=== PATIENT | female | born 1970 | race African-American/Black ===

== ENCOUNTER 2018-11-09 15:51 | Emergency (ER) | payer BC ==
[2018-11-09] MEDS ORDERED: Ibuprofen 800 MG TAB ONE (16:25)
--- NOTE | 2018-11-09 16:50 | RAD ---
LEFT WRIST THREE VIEW 11/09/18 HISTORY: Injury. COMPARISON: None. FINDINGS: There is mild widening of the scapholunate interval, abnormal. No acute displaced fracture or malalig nment. Scaphoid is without fracture. IMPRESSION: Age indeterminate widening of the scapholunate interval suggesting scapholunate ligament injury. POS: [facility]
== END 2018-11-09 17:09 | disposition home or self-care (01) ==
LOC: ERS 15:51
DX: M25.432 Effusion, left wrist (principal); W19.XXXA Unspecified fall, initial encounter

== ENCOUNTER 2018-12-02 10:06 | Outpatient (CLI) | payer BC ==
--- NOTE | 2018-12-02 15:05 | MRI ---
MRI LEFT WRIST POST ARTHROGRAM CONTRAST: HISTORY: Pain in left wrist following an injury. TECHNIQUE: Contrast media was injected into the radial carpal joint. FINDINGS: There is a central perforation of the TFC with contrast extending into an abnormally dilated distal r adial ulnar joint. In addition, there is evidence for scapholunate disassociation, with complete dis ruption of the scapholunate ligament and extension of contrast into the middle carpal row. No eviden ce for signal abnormal marrow signal. No evidence for a scaphoid fracture. The visualized tendons a ppear unremarkable. No significant abnormal tenosynovitis. IMPRESSION: 1. Central perforation of the triangular fibrocartilage complex. 2. 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 POS: [facility]
--- NOTE | 2018-12-02 15:13 | RAD ---
LEFT WRIST ARTHROGRAM: Indications: Left wrist injury with pain. Post arthrogram MRI of the wrist is requested. Technique: 25 gauge needle was placed in the radial carpal joint under fluoroscopic guidance under local anesthe diann. Contrast solution which was pre-mixed according to protocol containing iodinated contrast and ga dolinium was injected under fluoroscopic observation. FINDINGS: Post injection images show contrast into the radial carpal joint and into the midcarpal joint. [employer] views show widening of the scapholunate space indicating ligamentous injury. Contrast flows thr ough the scapholunate joint. See post gadolinium arthrogram MRI of left wrist for further characterization. IMPRESSION: Evidence of ligamentous injury. See post arthrogram MRI exam. POS: [facility]
== END 2018-12-02 10:07 | disposition home or self-care (01) ==
LOC: RAD 10:06
PROVIDERS: ATTEND Orthopaedic Surgery
DX: M25.532 Pain in left wrist (principal); S63.502A Unspecified sprain of left wrist, initial encounter; M94.8X3 Other specified disorders of cartilage, forearm
CPT/HCPCS: 25246